=== PATIENT | male | born 1950 | race Caucasian/White ===

== ENCOUNTER 2017-09-16 12:18 | Outpatient (CLI) | payer MEDICARE ==
[2017-09-16 13:15] LABS: #Eosinphils 0.6 thou/uL (0.0-0.7); #Lymphocytes 1.7 thou/uL (1.20-3.40); #Monocytes 0.8 thou/uL (0.11-0.59); #Neutrophils 4.5 thou/uL (1.40-6.50); %Basophils 0.5 % (0.0-1.0); %Eosinophils 8.2 % (0.0-10.0); %Lymphocytes 22.8 % (21.0-51.0); %Neutrophils 58.5 % (42.0-75.0); Hemoglobin 15.4 g/dL (14.0-18.0); Mean Corpuscular HGB CONC 33.8 g/dL (32.0-36.0); Mean Corpuscular Hemoglobin 32.1 pg (27.0-31.0); Mean Platelet Volume 9.1 fL (7.4-10.4); Platelet Count 114 thou/uL (130-400); RBC Distribution Width 13.4 % (11.5-14.5); Red Blood Cell (RBC) Count 4.78 mill/uL (4.70-6.10); White Blood Cell (WBC) Count 7.6 thou/uL (4.8-10.8)
--- NOTE | 2017-09-16 13:23 | RAD ---
TWO VIEW CHEST: Comparison: 04-13-12 Indication: Pre-operative evaluation. FINDINGS: Cardiac silhouette is upper limits of normal in size. There is a valvular prostheses overlying the le ft aspect of the cardiac silhouette. No consolidation, effusion, or discrete pneumothorax. Osseous de generative change is present. IMPRESSION: No focal consolidation. POS: [facility]
[2017-09-16 13:32] LABS: Anion Gap 10 mmol/L (10-20); BUN (Urea Nitrogen) 16 mg/dL (8.4-25.7); Calc. Creatinine Clearance 0 mL/min (70-130); Calcium 9.3 mg/dL (7.8-10.44); Carbon Dioxide 29 mmol/L (23-31); Chloride 106 mmol/L (98-107); Estimated GFR-MDRD 49; Glucose 139 mg/dL (80-115); Potassium 3.9 mmol/L (3.5-5.1); Sodium 141 mmol/L (136-145)
--- NOTE | 2017-09-16 15:52 | EKG ---
Test Reason : Blood Pressure : / mmHG Vent. Rate : 064 BPM Atrial Rate : 064 BPM P-R Int : 176 ms QRS Dur : 054 ms QT Int : 328 ms P-R-T Axes : -10 147 028 degrees QTc Int : 338 ms Normal sinus rhythm Right bundle branch block Anterolateral infarct , age undetermined Inferior infarct , age undetermined Left axis deviation Abnormal ECG Confirmed by LELE ALLISON ([id number]) on 09/16/2017 3:51:48 PM Referred By: LEONARDA Confirmed By:LELE ALLISON
== END 2017-09-16 12:19 | disposition home or self-care (01) ==
LOC: LABBT 12:18
PROVIDERS: ATTEND Specialist
DX: Z01.818 Encounter for other preprocedural examination (principal); K42.9 Umbilical hernia without obstruction or gangrene
CPT/HCPCS: 71046; 80048; 85025; 93005; 93010

== ENCOUNTER 2017-09-22 05:50 | Day surgery (SDC) | payer MEDICARE ==
[2017-09-16 13:00] VITALS: BMI 47.5
[2017-09-22] MEDS ORDERED: Bupivacaine HCl 0.5%/Epinephrine 1:200,000/PF 30 ml Vial ONE (06:28)
[2017-09-22] MEDS ORDERED: Ketorolac Tromethamine 30 MG/ML VIAL ONE (06:30)
[2017-09-22] MEDS ORDERED: Midazolam HCl 2 mg/2 ml Vial ONE (06:30)
[2017-09-22] MEDS ORDERED: Fentanyl 100 MCG/2 ML VIAL ONE (06:30)
[2017-09-22] MEDS ORDERED: CEFAZOLIN/Water 2 GM/20 ML SYRINGE ONE (06:31)
--- NOTE | 2017-09-22 13:25 | OP ---
DATE OF PROCEDURE: 09/22/2017 PREOPERATIVE DIAGNOSIS: Umbilical hernia. POSTOPERATIVE DIAGNOSIS: Umbilical hernia. OPERATION PERFORMED: Umbilical hernia repair with mesh patch. SURGEON: Marcus Shah M.D. ANESTHESIA: General endotracheal. INDICATIONS: The patient is a 67-year-old morbidly obese white male. He presents with an obviously protruding umbilical hernia. He is taken to the operating room at this time for repair. DESCRIPTION OF OPERATION: Informed consent was obtained. The patient was taken to the operating hieu m where general endotracheal anesthesia was obtained with the patient in supine position. Abdomen wa s prepped with ChloraPrep and draped in sterile fashion. Local anesthetic was infiltrated using 0.5% Marcaine with epinephrine. Curvilinear infraumbilical incision was created and dissection was larissa ed through skin and subcutaneous tissue down to the fascia. The umbilicus was dissected off the unde rlying hernia sac and fascia and reflected superiorly. The hernia sac contained fatty contents. Thi s was dissected at the level of the fascia to be able to reduce the hernia contents to the preperiton eal space. I thereafter digitally dissected the preperitoneal space circumferentially. A 6.6 cm Par ietex composite ventral mesh patch was obtained and placed within the preperitoneal space. The tails were withdrawn through the incision. The defect was then closed using 3 interrupted sutures of 0 Pr olene. The lateral sutures incorporated bites of the mesh tails at the corner. The umbilicus was th en secured down to the fascia with 2 interrupted sutures of 3-0 Vicryl. The remainder of the wound w as closed in layers with 3-0 and 4-0 Monocryl. Additional local anesthetic was infiltrated during cl osure. Dermabond was placed externally. A compression dressing was effected of cotton balls and Teg aderm dressing in the usual fashion. There were no complications. Blood loss was negligible. The p atient tolerated the procedure well and was taken to recovery room in stable condition.
[2017-09-22] MEDS ORDERED: Lidocaine 1% PF 5 ML VIAL ONE (15:45)
[2017-09-22] MEDS ORDERED: Succinylcholine Chloride 20 MG/ML 10 ml SYRINGE FS ONE (15:45)
[2017-09-22] MEDS ORDERED: Metoclopramide HCl 10 MG/2 ML VIAL ONE (15:45)
[2017-09-22] MEDS ORDERED: PROPOFOL 200 MG/20 ML VIAL ONE (15:45)
[2017-09-22] MEDS ORDERED: ePHEDrine/0.9% NaCl/PF SYRINGE 50 mg/10 ml ONE (15:45)
[2017-09-22] MEDS ORDERED: Ondansetron HCl/PF 4 MG/2 ML Vial ONE (15:45)
[2017-09-22] MEDS ORDERED: Dexamethasone 20 MG/5 ML VIAL ONE (15:45)
[2017-09-22] MEDS ORDERED: diphenhydrAMINE 50 MG/ML VIAL ONE (15:45)
== END 2017-09-22 10:15 | disposition home or self-care (01) ==
LOC: SDC 05:50
PROVIDERS: ATTEND Specialist
PROC: 0WUF0JZ Supplement Abdominal Wall with Synthetic Substitute, Open Approach (ICD-10-PCS; principal; 2017-09-22)
DX: K42.9 Umbilical hernia without obstruction or gangrene (principal); E11.9 Type 2 diabetes mellitus without complications; I10 Essential (primary) hypertension; E66.01 Morbid (severe) obesity due to excess calories; Z68.42 Body mass index [BMI] 45.0-49.9, adult; Z79.84 Long term (current) use of oral hypoglycemic drugs; Z79.899 Other long term (current) drug therapy; Z98.890 Other specified postprocedural states; Z87.891 Personal history of nicotine dependence
CPT/HCPCS: J0131; J0670; J1100; J1200; J1885; J2001; J2250; J2405; J2704; J2765; J3010

== ENCOUNTER 2018-11-16 16:04 | Observation (INO) | payer MEDICARE ==
[~2018-11-16 16:04] MED LIST: ISOVUE-370 76%-LOCM 1 ML ONE
[2018-11-16 16:53] LABS: #Eosinphils 0.6 thou/uL (0.0-0.7); #Lymphocytes 2.3 thou/uL (1.20-3.40); #Monocytes 0.7 thou/uL (0.11-0.59); #Neutrophils 4.5 thou/uL (1.40-6.50); %Basophils 0.6 % (0.0-1.0); %Lymphocytes 28.2 % (21.0-51.0); %Monocytes 8.6 % (0.0-10.0); %Neutrophils 55.6 % (42.0-75.0); Mean Corpuscular HGB CONC 33.2 g/dL (32.0-36.0); Mean Corpuscular Volume 93.5 fL (78.0-98.0); Mean Platelet Volume 10.5 fL (7.4-10.4); Platelet Count 103 thou/uL (130-400); RBC Distribution Width 13.7 % (11.5-14.5); Red Blood Cell (RBC) Count 5.14 mill/uL (4.70-6.10); White Blood Cell (WBC) Count 8.2 thou/uL (4.8-10.8)
--- NOTE | 2018-11-16 17:02 | RAD ---
EXAM: CHEST ONE VIEW HISTORY: Atrial fibrillation with RVR. Chest pain. COMPARISON: 09/16/2017 FINDINGS: Metallic device again overlies the region of the left atrial appendage which could potentially repres ent an atrial occlusion type device. The cardiac silhouette is magnified by projection. Pulmonary vasculature is within normal limits. The lungs are clear. Chest is stable from prior exam. IMPRESSION: No acute cardiopulmonary process.
[2018-11-16 17:19] LABS: ALT (SGPT) 20 U/L (8-55); AST (SGOT) 23 U/L (5-34); Alkaline Phosphatase 51 U/L (40-150); Anion Gap 15 mmol/L (10-20); BUN (Urea Nitrogen) 24 mg/dL (8.4-25.7); Bilirubin, Total 1.1 mg/dL (0.2-1.2); CK (CPK) 54 U/L (30-200); Calc. Creatinine Clearance 0 mL/min (70-130); Calcium 9.9 mg/dL (7.8-10.44); Carbon Dioxide 28 mmol/L (23-31); Chloride 104 mmol/L (98-107); Estimated GFR-MDRD 41; Globulin 2.7 g/dL (2.4-3.5); Glucose 114 mg/dL (80-115); Lipase 68 U/L (8-78); Potassium 4.3 mmol/L (3.5-5.1); Protein, Total 6.7 g/dL (5.8-8.1); Sodium 143 mmol/L (136-145)
[2018-11-16] MEDS ORDERED: Metoprolol Tartrate 5 MG/5 ML VIAL ONE (18:01)
--- NOTE | 2018-11-16 19:04 | CT ---
CTA OF THE THORAX UTILIZING IV CONTRAST, PE PROTOCAL AND 3D REFORMATTED IMAGING 11/16/18 COMPARISON: Prior exam dated 11/09/13. FINDINGS: Since the comparison examination, there has been interval placement of an occlusive device within th e left atrial appendage. No definite central or segmental pulmonary embolus is evident. Again seen a re prominent lymph nodes within the mediastinum or hilar regions. One of the largest lymph nodes with in prevascular space is enlarged measuring 1.6 mm where it previously measured 9 mm. There is a righ t paratracheal lymph node measuring 1.4 cm where it previously measured 1.3 cm. There is a right supr ahilar lymph node measuring 1.5 cm where previously it measured 1.3 cm. There are areas of subsegmental volume loss involving both lungs. No confluent air space opacity or p leural effusion is noted. The visualized upper abdomen demonstrate mildly prominent paraesophageal lymph nodes. There is a gall stone within the gallbladder. No acute osseous abnormality is evident. There is scattered degenerative and osteoarthritic change. IMPRESSION: 1. No central or segmental pulmonary embolus. 2. Enlarging mediastinal and hilar lymph nodes. This is nonspecific and is slowly enlarging sinc e 2013. This may reflect an underlying inflammatory process such as sarcoidosis. Atypical infectious process such as fungal exposure could also produce a similar finding. Inhalational disorders can also produce a similar finding. 3. Interval placement of a closure device within the atrial appendage. POS: [facility]
[2018-11-16] MEDS ORDERED: Senokot S 8.6-50 MG TAB PO PRN (19:48)
[2018-11-16] MEDS ORDERED: Acetaminophen 650 MG Suppository PR PRN (19:48)
[2018-11-16] MEDS ORDERED: Ondansetron ODT 4 MG TAB PO PRN (19:48)
[2018-11-16] MEDS ORDERED: Acetaminophen 325 MG TAB PO PRN (19:48)
[2018-11-16] MEDS ORDERED: HumaLOG 300 UNITS/3 ML VIAL SC PRN ×2 (19:51)
[2018-11-16] MEDS ORDERED: Dextrose 50% Abboject 50 ML SYRINGE SLOW IVP PRN (19:51)
[2018-11-16] MEDS ORDERED: Dextrose 5% in Water 1,000 ML IV PRN (19:51)
[2018-11-16] MEDS ORDERED: Enoxaparin Sodium 100 MG/ML SYRINGE ONE (19:55)
[2018-11-16] MEDS ORDERED: Enoxaparin Sodium 40 MG/0.4 ML SYRINGE ONE (20:00)
[2018-11-16] MEDS ORDERED: Enoxaparin Sodium 60 MG/0.6 ML SYRINGE ONE (20:02)
[2018-11-16 20:09] LABS: Troponin I Less than 0.010 ng/mL (< 0.028)
[2018-11-16 20:29] VITALS: BMI 46.2
[2018-11-16] MEDS: Famotidine 20 MG TAB PO SCH (20:34)
[2018-11-16] MEDS ORDERED: Sodium Chloride 0.9% 1,000 ML IV SCH (21:04)
[2018-11-16] MEDS ORDERED: Ondansetron PF 4 MG/2 ML Vial IVP PRN (21:04)
[2018-11-16] MEDS ORDERED: Aspirin 325 MG TAB PO SCH (21:15)
--- NOTE | 2018-11-16 23:10 | HP ---
CHIEF COMPLAINT: Elevated heart rate. HISTORY OF PRESENT ILLNESS: Mr. Quevedo is a 68-year-old man, who presented for a followup with Dr. Dawn earlier today and noted to have an elevated heart rate in the 120s, believed to be in come to the emergency department. The patient had an EKG done upon arrival and was noted to be in sinus tachycardia with a heart rate of 123. Also noted on the EKG was a complete right bundle-branch block with normal ST segments. EKG has been reviewed by Dr. Dawn, who feels the patient is actually in atrial flutter. Plans at this point are for the patient to undergo a transesophageal echo followed by cardioversion tomorrow. The patient does have a history of atrial fibrillation with previous ablation. At this present time, the patient continues to be asymptomatic. He states he has not experienced any episodes of chest pain, palpitations, or shortness of breath. Has not had any nausea or vomiting. He has been in his usual state of health, but did report to Dr. Dawn noting a rapid heart rate on his Fitbit. In the ED, the patient has been started on Lovenox and has been given 5 mg of metoprolol. Heart rate improved to 103. REVIEW OF SYSTEMS: The patient denies having any recent fevers, chills, or sweats. No headaches or dizziness. No chest pain or palpitations. Has not had any nausea or vomiting. No indigestion. No abdominal pain or cramping. He has been eating and drinking as normal without any vomiting. No bowel changes. No urinary symptoms. All other review of systems are negative. ALLERGIES: NO KNOWN DRUG ALLERGIES. CURRENT MEDICATIONS: 1. Allopurinol. 2. Aspirin. 3. Carvedilol. 4. Coreg. 5. Furosemide. 6. Losartan. 7. Lyrica. 8. Metformin. 9. DiaBeta. 10. Pravachol. 11. Meloxicam. 12. Minocycline. 13. Cyproheptadine. 14. Fiber. 15. Flomax. 16. Trulicity. 17. Latanoprost. 18. Tresiba. PAST MEDICAL HISTORY: 1. History of atrial fibrillation, status post ablation in the past. 2. CHF. 3. Type 2 diabetes. 4. Hyperlipidemia. 5. Hypertension. PAST SURGICAL HISTORY: 1. Cardiac ablation x2. 2. Hernia repair. SOCIAL HISTORY: The patient lives at home and is fully independent. Reports drinking 5 to 6 cans of beer a day. Denies any history of alcohol withdrawal or tremors. No previous alcohol withdrawal seizures. He reports smoking previously. Denies any illicit drug use. PHYSICAL EXAMINATION: GENERAL: The patient appears obese, well-developed man, in no acute distress. VITAL SIGNS: Temperature 97.9, pulse 110, respirations 18, O2 saturation 96% on room air, blood pressure 123/93. HEENT: Normocephalic, atraumatic. Pupils are equal, round, and reactive to light. Sclerae are without icterus. Oropharynx is clear. NECK: Supple. No lymphadenopathy. LUNGS: Clear to auscultation bilaterally without wheezes, rales, or rhonchi. CARDIAC: Regular rhythm without audible murmurs, rubs, or gallops. ABDOMEN: Soft, obese, nondistended. Normoactive bowel sounds present. No renal angle tenderness. No guarding or rigidity. EXTREMITIES: No edema. NEUROLOGIC: Alert and oriented x3. SKIN: Without rash or jaundice. LABORATORY DATA: Full blood count unremarkable. D-dimer 0.63. Sodium 143, potassium 4.3, anion gap 15, carbon dioxide 28, BUN 24, creatinine 1.68, GFR 41, glucose 114, calcium 9.9, total bilirubin 1.1, AST 23, ALT 20, alkaline phosphatase 51. CK 54, troponin negative. BNP 173.9. Total protein 6.7, albumin 4.0, lipase 68. IMAGING DATA: 1. Chest x-ray, no acute cardiopulmonary process. Metallic device overlies region of the left atrial appendage. Pulmonary vasculature within normal limits. 2. CT angiogram of the chest, no evidence of pulmonary embolism. Enlarging mediastinal and hilar lymph nodes present, felt to be nonspecific, slowly enlarging compared to studies done in 2014. Per report, could possibly reflect underlying inflammatory process such as sarcoidosis. Atypical infectious process such as fungal exposure also a possibility. As would be inhalation disorders. Interval placement of a closure device within the atrial appendage noted. IMPRESSION AND PLAN: Mr. Quevedo is a 68-year-old man, who is being admitted for management of the following. 1. Atrial flutter. The patient is seen by Dr. Dawn, who has advised transesophageal echo followed by cardioversion tomorrow morning. The patient is to remain n.p.o. at midnight. Will be admitted to Tele. 2. Hypertension. Continue to monitor blood pressure. We will reconcile medications once verified. 3. Type 2 diabetes mellitus. Insulin sliding scale initiated. Monitor glucose. We will reconcile home medications once verified. 4. Hyperlipidemia. We will resume home medications once verified. 5. Gastrointestinal prophylaxis. 6. Deep venous thrombosis prophylaxis. The patient has been started on Lovenox. We will place mechanical SCDs. 7. Full code status. The patient states his surrogate decision makers would be his , Faiza Quevedo, and his brother. The patient's case was discussed with , who agrees with plan of care as described above. Job ID: [id number]
[2018-11-16 23:28] LABS: Troponin I 0.014 ng/mL (< 0.028)
--- NOTE | 2018-11-17 02:20 | CON ---
DATE OF CONSULTATION: 11/16/2018 REASON FOR CONSULTATION: Tachycardia. HISTORY OF PRESENT ILLNESS: Mr. Quevedo is a very pleasant 68-year-old gentleman with a long history of atrial arrhythmias. In 2011, he presented with a transient ischemic attack. At that time, he was diagnosed with atrial fibrillation. He later was also found to have atrial flutter. He had atrial flutter ablation done here in 2012. Subsequently had more problems with atrial fibrillation and eventually underwent atrial fibrillation ablation, I believe that was done in [place]. The patient later had left atrial occlusion device placed (Amulet). He was later taken off Eliquis after it was found to be adequately occluded. The patient states he has been doing fairly well up until recently, then began having more shortness of breath and some swelling of his lower extremities. He came to our office, where EKG initially thought to be atrial fibrillation, but appears it is atrial flutter in the mid 120s. MEDICATIONS: At home, he is taking carvedilol twice a day, but he is unsure of the medicine, and also aspirin. REVIEW OF SYSTEMS: CONSTITUTIONAL: No significant weight gain or loss. VISION: No changes. HEARING: No changes. PULMONARY: No cough or wheezing. GASTROINTESTINAL: No nausea, vomiting, or diarrhea. SKIN: No rashes. PHYSICAL EXAMINATION: GENERAL: This is a pleasant gentleman. He is relatively tall. VITAL SIGNS: The weight is not currently recorded. He generally weighs well over 300 pounds. Heart rate is variable between 100 to 125, looks like it is atrial flutter with variable conduction. LUNGS: Clear. CARDIAC: Tachycardic. ABDOMEN: Obese and nontender. EXTREMITIES: No clubbing or cyanosis. There is moderate edema. LABORATORY DATA AND DIAGNOSTIC STUDIES: The patient had a CT pulmonary angiogram done here, concerned for pulmonary embolism, but that was negative. The patient 's creatinine is 1.68. The patient's EKG reveals tachycardia with right bundle branch block pattern. He is in atrial flutter ASSESSMENT AND PLAN: 1. Recurrent atrial arrhythmias, atrial flutter. 2. Obesity. 3. Previous atrial fibrillation and atrial flutter ablations. PLAN: 1. Transesophageal echo and cardioversion tomorrow. 2. Consult electrophysiology tomorrow. Job ID: [id number] [facility]
[2018-11-17 05:25] LABS: #Basophils 0.1 thou/uL (0.0-0.2); #Eosinphils 0.5 thou/uL (0.0-0.7); #Lymphocytes 2.3 thou/uL (1.20-3.40); #Monocytes 0.6 thou/uL (0.11-0.59); #Neutrophils 3.6 thou/uL (1.40-6.50); %Basophils 0.7 % (0.0-1.0); %Eosinophils 7.2 % (0.0-10.0); %Lymphocytes 32.2 % (21.0-51.0); %Monocytes 9.1 % (0.0-10.0); %Neutrophils 50.8 % (42.0-75.0); Hemoglobin 14.8 g/dL (14.0-18.0); Mean Corpuscular HGB CONC 33.4 g/dL (32.0-36.0); Mean Corpuscular Hemoglobin 31.4 pg (27.0-31.0); Mean Platelet Volume 10.4 fL (7.4-10.4); Platelet Count 98 thou/uL (130-400); RBC Distribution Width 13.6 % (11.5-14.5); White Blood Cell (WBC) Count 7.1 thou/uL (4.8-10.8)
[2018-11-17 05:52] LABS: Anion Gap 14 mmol/L (10-20); BUN (Urea Nitrogen) 25 mg/dL (8.4-25.7); Calc. Creatinine Clearance 103 mL/min (70-130); Calcium 9.4 mg/dL (7.8-10.44); Carbon Dioxide 24 mmol/L (23-31); Chloride 108 mmol/L (98-107); Estimated GFR-MDRD 44; Glucose 191 mg/dL (80-115); Potassium 3.6 mmol/L (3.5-5.1); Sodium 142 mmol/L (136-145)
[2018-11-17] MEDS: Famotidine 20 MG TAB PO SCH (08:06)
[2018-11-17] MEDS ORDERED: Flecainide 50 MG TAB PO SCH (09:00)
[2018-11-17] MEDS ORDERED: PROPOFOL 40 ML ONE (09:37)
[2018-11-17] MEDS ORDERED: Apixaban 5 MG TAB PO SCH ×3 (11:09→21:00)
[2018-11-17 12:04] VITALS: TEMP 97.4
--- NOTE | 2018-11-17 12:21 | CON ---
DATE OF CONSULTATION: 11/16/2018 HISTORY OF PRESENT ILLNESS: I am seeing Mr. Quevedo at our [facility] ([place], [place]) telemetry floor as an electrophysiology documentum consultant and his problems are : 1. Recurrent atrial arrhythmias. a. History of persistent atrial fibrillation prompting pulmonary venous isolation in 2013 and redo ablation in June 2016 including isolation of the left atrial appendage. b. Current admission with atypical atrial flutter with rapid rates. 2. SOFI-VASc score of 3 with hypertension, diabetes, age, status post Amulett KYLE occlusion device implant in 2017 and subsequent satisfactory SHARYN per patient. 3. Chronic right bundle branch block. 4. History of significant valvular heart disease, mild MR, mild TR. Left atrial enlargement on SHARYN from 11/10/2013. No prior history of heart disease or heart attacks. 5. Morbid obesity. ALLERGIES: NONE NOTED. MEDICATIONS: At home includes: 1. DiaBeta. 2. Losartan. 3. Lyrica. 4. Metformin. 5. Aspirin. 6. Pravachol. 7. Meloxicam. 8. Minocycline. 9. Cyproheptadine. 10. Allopurinol. 11. Cyanocobalamin. 12. Coreg. 13. Flomax. 14. Furosemide. 15. Carvedilol. 16. Trulicity. 17. Latanoprost. SUBJECTIVE: Mr. Quevedo has been experiencing some increased palpitations recently. He has been noticing elevated heart rate on his new Fitbit heart rate monitors. Denies chest pains, dizziness, or loss of consciousness associated with this. He visits Dr. Dawn's office and he was noted to be in regular rhythm. EKG suggestive of atrial flutter with 2:1 AV conduction. He was admitted for further care. SHARYN guided cardioversion is planned. Currently, he has no PND, orthopnea, or lower extremity edema. Denies angina. No dizziness or loss of consciousness. No bleeding issues. No stroke-like symptoms in the past. He had severe bruising with anticoagulants. REVIEW OF SYSTEMS: Rest of 12-point system otherwise unremarkable. OBJECTIVE: VITAL SIGNS: Blood pressure is 107/63, heart rate 118, respirations 16, temperature 97.9 degrees Fahrenheit. GENERAL: Alert and oriented man, in no apparent distress with elevated BMI. His weight is 344 pounds. NECK: Supple. Jugular veins difficult to visualize due to obesity. CHEST: Coarse without crackles. HEART: Sounds are regular and tachycardic. No murmur or gallop. ABDOMEN: Benign. Bowel sounds positive. EXTREMITIES: Lower extremity without edema, clubbing or cyanosis. Pulses are adequate. NEUROLOGIC: The patient is nonfocal. MUSCULOSKELETAL: No joint swelling or deformity. SKIN: Without rash. DATABASE: EKGs reviewed revealing rapid tachycardia with a right bundle branch block pattern. Telemetry reveals occasional slowing revealing underlying atrial flutter. The ventricular rates on initial EKG is 123 beats per minute. LABORATORY DATA: White cell count 7.1, hemoglobin 14, hematocrit 44, platelet count is 98. Sodium 142, potassium 3.6, BUN is 25, and creatinine 1.57. D-dimer is 0.63. ASSESSMENT AND PLAN: Mr. Quevedo is a 68-year-old man with prior history of repeated left atrial ablation procedures, now presenting with atypical atrial flutter with rapid rates. He does have a history of appendage occlusion and left atrial appendage isolation as well. Currently, not on anticoagulant. His workup so far is significant for mild thrombocytopenia in the 90,000 range and moderate renal insufficiency. We discussed treatment options. I agree with the plan of cardioversion. SHARYN might be helpful to assess his LV systolic function, as well as the closure of left atrial appendage with the device. We discussed the benefit of cardioversion. He may benefit also from transient suppression of his arrhythmias with flecainide. We discussed the longer-term option of outpatient redo ablation. We will make arrangements for this to be done in the near future. Risk and benefit of the ablation procedure were discussed. He understands and is willing to proceed. We will schedule him for a near date. Thank you again for allowing me to participate in the care of this patient. Job ID: [id number] [facility]
[2018-11-17] MEDS ORDERED: Carvedilol 25 MG TAB PO SCH ×2 (12:45→17:00)
--- NOTE | 2018-11-17 13:36 | PRG ---
DATE OF SERVICE: 11/17/2018 Mr. Quevedo underwent cardioversion today. He was found to have a very long first-degree AV block of 0.28. He also has a bifascicular block. His underlying rhythm before the cardioversion was atrial flutter. The patient will go home on the same medicines he came in on includin. Carvedilol 25 mg a day. 2. Losartan same dose. 3. Apixaban 5 mg tablet twice a day will be resumed for at least a month. Stop aspirin. There was initially some consideration for flecainide, but he has some degree of left ventricular dysfunction. He also has the abnormal conduction system disease as outlined above. Dr. Trujillo will bring him back in for atrial flutter ablation. The patient understands that he could recur at any time with atrial flutter. If he has prolonged heart rates of 120s, he is to be readmitted. Would need to re-cardiovert him. Would not need to do another SHARYN in view of the recent SHARYN findings and being on apixaban, but I do not think he can tolerate long-term tachycardia with some degree of left ventricular dysfunction. So, he is to come in next week for an echocardiogram. The patient does not wish to stay in the hospital any longer today. Job ID: [id number]
[2018-11-17 14:18] VITALS: BP 130/80
--- NOTE | 2018-11-17 15:41 | ECHO ---
This is a 68-year-old gentleman with typical atrial flutter. The patient was taken to the PACU. The patient sedated by anesthesiology. A transesophageal probe was placed in the distal esophagus and stomach. Echocardiograms were obtained and the transesophageal pr obe was removed. FINDINGS: 1. Decreased left ventricular systolic function. 2. Biatrial enlargement. 3. Mild mitral regurgitation. 4. Mild tricuspid regurgitation. 5. The occluder device is noted in the left atrial appendage. There was a less than 1 mm leak no gunjan around the device. 6. Atherosclerotic debris in the descending aorta. IMPRESSION: Small, less than 1 mm leak noted around the occluder device.
[2018-11-17] MEDS ORDERED: PROPOFOL 200 MG/20 ML VIAL ONE (15:49)
--- NOTE | 2018-11-17 15:54 | OP ---
DATE OF PROCEDURE: 11/17/18 SURGEON: Kevin Dawn M.D. PROCEDURE: Cardioversion. The patient is brought to the Post Cath area in a fasting state. Transesophageal echo revealed a tiny communication between the left atrial appendage and left atrium. It was well under 1 mm. It looked l asad a very trivial amount of flow that Dr. Whitman said was very difficult to find but he ultimately found this. Patient did have some left ventricular dysfunction likely related to the tachycardia. The decision wa s made to go ahead and cardiovert. Also leaving him like this would not be a good option. This is lik luciana going to result in further left ventricular dysfunction. He was given 50 joules direct current en ergy and converted to sinus rhythm with first degree block. Patient underwent successful cardioversio n. Tiny amount of flow through the amulut. As a precaution, we will go ahead and anticoagulate for 30 da ys with Eliquis.
--- NOTE | 2018-11-18 05:06 | DIS ---
DATE OF ADMISSION: 11/16/2018 DATE OF DISCHARGE: 11/17/2018 CONDITION AT THE TIME OF DISCHARGE: Stable and improved. DISCHARGE DISPOSITION: Home. DISCHARGE DIAGNOSIS: Atrial flutter. The patient underwent SHARYN with successful cardioversion by Dr. Dawn. SECONDARY DISCHARGE DIAGNOSES: 1. status post ablation in the past. 2. History of chronic congestive heart failure. 3. Type 2 diabetes mellitus. 4. Hypertension. 5. Dyslipidemia. DISCHARGE MEDICATIONS: Stopped medication; aspirin daily. New medication, Eliquis 5 mg p.o. b.i.d. Resume home medications. Please see admission history and physical dictated by MADISON Pérez on 11/16/2018. No changes were made. Coreg is at 25 mg p.o. b.i.d. and losartan is at 25 mg at bedtime. Resume rest of the home medications as per HPI, including 1. Pravachol 40 mg daily. 2. Lyrica 100 mg p.o. b.i.d. 3. Tamsulosin 0.4 mg daily. 4. Tresiba at home dosages. 5. Glyburide 5 mg p.o. b.i.d. 6. Neurontin 300 mg p.o. b.i.d. 7. Lasix 40 mg p.o. b.i.d. 8. Trulicity subcu as home dose. 9. Cyproheptadine 4 mg p.o. b.i.d. IN-HOUSE CONSULTATION: 1. Cardiology, Dr. Dawn. 2. Electrophysiology, Dr. Trujillo. PROCEDURES DONE IN THE HOSPITAL: CT angio of the thorax which is negative for any pulmonary embolism. It shows some atypical mediastinal hilar lymph nodes. An atrial appendage is also seen. HISTORY OF PRESENTING ILLNESS: Mr. Quevedo is a 68-year-old male with past medical history of atrial fibrillation status post ablation in the past at least twice as well as left atrial occlusive device, who presented to the emergency room with complaints of faster heart rate found in Dr. Dawn's office. He was found to be in sinus tachycardia with a heart rate of 123 and right bundle-branch block. EKG was reviewed by Dr. Dawn, who felt that the patient was in atrial flutter. He was admitted to Medicine for further evaluation and was given a therapeutic dose of Lovenox as well as IV metoprolol. Please see admission history and physical dictated by for further detail including [id number] interaction. A CT angio of the chest was done in the emergency room because of elevated D-dimer, which was negative for any PE. HOSPITAL COURSE: The patient remained hemodynamically stable and underwent a SHARYN with successful cardioversion earlier this morning by Dr. Dawn. He was started on Eliquis and then his aspirin was stopped. The patient was eager to go home and refused to let me examine him. He did not want me to take care of him. He wanted Dr. Dawn to discharge him, so Dr. Dawn was contacted. He cleared the patient for discharge, so he was discharged. I have encouraged him to follow up with primary care physician at the very least, as well as Cardiology in the outpatient setting. Dr. Trujillo also saw the patient in the hospital and he considered flecainide but at this time, he was not started on it. Dr. Trujillo will also see him in the outpatient setting. His physical examination was limited because of noncooperation. His vital signs prior to discharge, blood pressure 138/80, pulse of 89, respirations 18, saturating 97% on room air. PRIMARY CARE PHYSICIAN: Edson Arshad DO Job ID: [id number]
--- NOTE | 2018-11-19 07:13 | EKG ---
Test Reason : POST CARDIOVERSION Blood Pressure : / mmHG Vent. Rate : 083 BPM Atrial Rate : 083 BPM P-R Int : 278 ms QRS Dur : 160 ms QT Int : 418 ms P-R-T Axes : 038 -74 -02 degrees QTc Int : 491 ms Sinus rhythm with 1st degree A-V block Left axis deviation Right bundle branch block Possible Lateral infarct (cited on or before 16-SEP-2017) Inferior infarct (cited on or before 30-NOV-2013) Abnormal ECG When compared with ECG of 16-NOV-2018 16:18, (Unconfirmed) OR interval has increased Confirmed by J LUIS MCLAUGHLIN ([id number]) on 11/19/2018 7:12:35 AM Referred By: TOMEKA Confirmed By:J LUIS MCLAUGHLIN
== END 2018-11-17 14:43 | disposition home or self-care (01) ==
LOC: ERS 16:04 → 2SW 20:24
PROVIDERS: ADMIT Internal Medicine; ATTEND Internal Medicine
PROC: B24BZZ4 Ultrasonography of Heart with Aorta, Transesophageal (ICD-10-PCS; principal; 2018-11-17)
PROC: 5A2204Z Restoration of Cardiac Rhythm, Single (ICD-10-PCS; 2018-11-17)
DX: I48.3 Typical atrial flutter (principal); I70.0 Atherosclerosis of aorta; I08.1 Rheumatic disorders of both mitral and tricuspid valves; I48.1 Persistent atrial fibrillation; I45.10 Unspecified right bundle-branch block; I11.0 Hypertensive heart disease with heart failure; I50.9 Heart failure, unspecified; E11.9 Type 2 diabetes mellitus without complications; E78.5 Hyperlipidemia, unspecified; E66.01 Morbid (severe) obesity due to excess calories; Z79.01 Long term (current) use of anticoagulants; Z87.891 Personal history of nicotine dependence; Z95.818 Presence of other cardiac implants and grafts; Z98.890 Other specified postprocedural states; Z79.82 Long term (current) use of aspirin; Z79.84 Long term (current) use of oral hypoglycemic drugs; Z79.899 Other long term (current) drug therapy; Z86.73 Personal history of transient ischemic attack (TIA), and cerebral infarction without residual deficits; Z68.42 Body mass index [BMI] 45.0-49.9, adult
CPT/HCPCS: 71045; 71275; 80048; 80053; 82550; 82962 ×2; 83690; 83880; 84484 ×2; 85025 ×2; 85379; 92960; 93005 ×2; 93312; 96361 ×2; 96365; 96372; 96375; 99285; G0378 ×2; 36415; 36416; 93010; J1650; J2704; Q9966

== ENCOUNTER 2018-11-27 16:52 | Emergency (ER) | payer MEDICARE | END 2018-11-27 18:23 | disposition home or self-care (01) | LOC: ERS 16:52 | DX: R20.2 Paresthesia of skin (principal); E11.9 Type 2 diabetes mellitus without complications; E78.5 Hyperlipidemia, unspecified; I11.0 Hypertensive heart disease with heart failure; I50.9 Heart failure, unspecified; I48.91 Unspecified atrial fibrillation | CPT/HCPCS: 99283 ==

== ENCOUNTER 2018-12-07 08:12 | Observation (INO) | payer MEDICARE ==
[2018-12-06 12:57] VITALS: BMI 45.5
[2018-12-07 09:18] LABS: INR-International Normal Ratio 1.4; Prothrombin Time 17.2 SEC (12.0-14.7)
[2018-12-07 09:23] LABS: #Basophils 0.1 thou/uL (0.0-0.2); #Eosinphils 0.7 thou/uL (0.0-0.7); #Lymphocytes 1.5 thou/uL (1.20-3.40); #Monocytes 0.6 thou/uL (0.11-0.59); #Neutrophils 4.4 thou/uL (1.40-6.50); %Basophils 0.9 % (0.0-1.0); %Eosinophils 9.9 % (0.0-10.0); %Lymphocytes 20.3 % (21.0-51.0); %Monocytes 8.6 % (0.0-10.0); %Neutrophils 60.4 % (42.0-75.0); Hemoglobin 14.9 g/dL (14.0-18.0); Mean Corpuscular HGB CONC 33.6 g/dL (32.0-36.0); Mean Corpuscular Hemoglobin 31.3 pg (27.0-31.0); Mean Corpuscular Volume 93.3 fL (78.0-98.0); Platelet Count 106 thou/uL (130-400); RBC Distribution Width 13.2 % (11.5-14.5); Red Blood Cell (RBC) Count 4.76 mill/uL (4.70-6.10); White Blood Cell (WBC) Count 7.3 thou/uL (4.8-10.8)
[2018-12-07 09:29] LABS: Anion Gap 11 mmol/L (10-20); BUN (Urea Nitrogen) 22 mg/dL (8.4-25.7); Calc. Creatinine Clearance 109 mL/min (70-130); Calcium 9.6 mg/dL (7.8-10.44); Carbon Dioxide 30 mmol/L (23-31); Chloride 106 mmol/L (98-107); Estimated GFR-MDRD 48; Glucose 108 mg/dL (80-115); Potassium 3.8 mmol/L (3.5-5.1); Sodium 143 mmol/L (136-145)
[2018-12-07] MEDS ORDERED: Rocuronium Bromide 10 MG/ML (10ML VIAL) ONE (10:39)
[2018-12-07] MEDS ORDERED: Heparin 30,000 units/30 ml VIAL ONE (10:39)
[2018-12-07] MEDS ORDERED: Lidocaine 1% PF 5 ML VIAL ONE (10:39)
[2018-12-07] MEDS ORDERED: Glycopyrrolate 0.2 MG/ML 5 ML SYRINGE ONE (10:39)
[2018-12-07] MEDS ORDERED: PROPOFOL 200 MG/20 ML VIAL ONE (10:39)
[2018-12-07] MEDS ORDERED: PHENYLEPHRINE-NS 100 MCG/ML 10 ML SYRINGE ONE (10:39)
[2018-12-07] MEDS ORDERED: Heparin 10,000 UNITS/1 ML VIAL ONE (11:28)
[2018-12-07] MEDS ORDERED: Midazolam HCl 2 mg/2 ml Vial ONE (11:58)
[2018-12-07] MEDS ORDERED: Fentanyl 100 MCG/2 ML VIAL ONE (11:58)
[2018-12-07] MEDS ORDERED: Famotidine/PF 20 mg/2ml Vial ONE (11:58)
[2018-12-07] MEDS ORDERED: Protamine Sulfate 50 MG/5 ML VIAL ONE (13:36)
[2018-12-07] MEDS ORDERED: SUGAMMADEX SODIUM 500 MG/5 ML VIAL ONE (13:53)
[2018-12-07] MEDS ORDERED: Cyanocobalamin 1000 MCG/ML VIAL IM SCH (14:45)
[2018-12-07] MEDS ORDERED: DULAGLUTIDE (TRULICITY) SC SCH (15:00)
--- NOTE | 2018-12-07 16:54 | EKG ---
Test Reason : PREOP Blood Pressure : / mmHG Vent. Rate : 075 BPM Atrial Rate : 075 BPM P-R Int : 282 ms QRS Dur : 160 ms QT Int : 444 ms P-R-T Axes : 043 -85 011 degrees QTc Int : 495 ms Sinus rhythm with 1st degree A-V block with Premature atrial complexes with Abberant conduction Left axis deviation Right bundle branch block Possible Lateral infarct (cited on or before 16-SEP-2017) Abnormal ECG When compared with ECG of 17-NOV-2018 11:20, Abberant conduction is now Present Questionable change in initial forces of Lateral leads Confirmed by DR. Meche VIGIL ([id number]) on 12/07/2018 4:54:26 PM Referred By: LIZ Confirmed By:DR. Meche VIGIL
--- NOTE | 2018-12-07 17:05 | EKG ---
Test Reason : POST ABLATION Blood Pressure : / mmHG Vent. Rate : 087 BPM Atrial Rate : 087 BPM P-R Int : 250 ms QRS Dur : 158 ms QT Int : 428 ms P-R-T Axes : 042 -83 046 degrees QTc Int : 515 ms Sinus rhythm with 1st degree A-V block Left axis deviation Inferior SC unknown age Right bundle branch block Abnormal ECG When compared with ECG of 07-DEC-2018 09:31, (Unconfirmed) Abberant conduction is no longer Present Confirmed by DR. Meche VIGIL (3) on 12/07/2018 5:04:58 PM Referred By: TOMEKA Confirmed By:DR. Meche VIGIL
[2018-12-07] MEDS: glyBURIDE 5 MG TAB PO SCH (17:18)
[2018-12-07] MEDS: metFORMIN 500 MG TAB PO SCH (17:20)
[2018-12-07] MEDS: Pregabalin 50 MG CAP PO SCH (20:34)
[2018-12-07] MEDS: Carvedilol 25 MG TAB PO SCH (20:34)
[2018-12-07] MEDS: Allopurinol 300 MG TAB PO SCH (20:34)
[2018-12-07] MEDS: Apixaban 5 MG TAB PO SCH (20:36)
[2018-12-07] MEDS: Doxycycline 100 MG CAP PO SCH (20:36)
--- NOTE | 2018-12-07 20:46 | OP ---
DATE OF PROCEDURE: 12/07/2018 PROCEDURES PERFORMED: Comprehensive electrophysiology testing with 3-dimensional mapping and ablation of atrial fibrillation. CLINICAL INDICATION: History of atrial fibrillation and flutter. ASA CLASSIFICATION: III. ANESTHESIA: General endotracheal anesthesia per Anesthesiology. ADDITIONAL CARDIAC MEDICATIONS: Isoproterenol 10 mcg/minute infusion. TOTAL HEPARIN GIVEN: 14,000 units. TOTAL PROTAMINE GIVEN: 40 mg. TOTAL CONTRAST: 17 mL. TOTAL FLUORO TIME: 0.2 minutes for angiographic analysis of the Amulet. ACUTE COMPLICATIONS: None. METHODS: After informed consent was obtained, the patient was taken to the EP lab in a fasting state. Both groins were prepped and draped. Using ultrasound guidance, the right and left femoral veins were accessed, wires were inserted into the central venous system. Wires were used to place an 11-Guyanese and 8-Guyanese sheaths in the left groin and two 8-Guyanese sheaths in the right groin. All 8-Guyanese sheaths were replaced by long sheaths for catheter stability. An echo probe was placed in the left groin and advanced up to the right atrium and right ventricle for imaging. A circular and ablation catheter was placed in the right vein and advanced up to the right atrium. A 3D map was obtained at the right atrium and the coronary sinus. A 20-pole catheter was placed in left groin and advanced toward the coronary sinus. The patient was then anticoagulated. Transseptal catheterization was performed on 2 occasions. Ultrasound was used along with 3D mapping system for guidance. A 3D map was obtained in the left atrium. A temperature probe was placed in the esophagus next to a sensor catheter for visualization of 3D mapping system. Ablation was performed, re-isolating the posterior wall and the right superior pulmonary vein as well as the coronary sinus as it was shown to have evidence of spontaneous atrial tachycardia arising from that chamber. At the conclusion, angiography was performed interrogating the Amulet. There was small a leak on the Coumadin ridge site; however, this did not pass beyond the lobe of the Amulet. RESULTS: 1. Baseline intervals: SC interval 251 milliseconds. QRS interval 150 milliseconds. QT intervals 442 milliseconds. HV intervals 65 milliseconds. 2. Atrial function: The patient was in sinus rhythm; however, spontaneous atrial tachycardia was seen arising from the coronary sinus, which was completely isolated. 3. Ablation details. A total of 11 minutes and 3 seconds of ablation delivered to re-isolate the posterior wall, the right superior pulmonary vein, and to completely isolate the coronary sinus. 4. Amulet evaluation: Angiography was obtained with pressurized contrast injection. This showed evidence of a small para-disk Amulet leak; however, the contrast did not pass distal to the lobe, as a result, the Amulet would be considered closed. IMPRESSION: 1. Successful PV antral isolation including coronary sinus and posterior wall isolation. 2. Evidence of a closed Amulet. There is a small nonclinical para-device Amulet leak at the level of the disk, but this did not pass beyond the lobe. RECOMMENDATION: Continue with anticoagulation for 6 weeks due to left atrial ablation themselves. Job ID: [id number]
[2018-12-07] MEDS ORDERED: Tamsulosin HCl 0.4 MG CAP PO SCH (21:00)
[2018-12-07] MEDS ORDERED: Atorvastatin Calcium 10 MG TAB PO SCH (21:00)
[2018-12-08 08:47] VITALS: BP 116/65; TEMP 97.9
[2018-12-08] MEDS ORDERED: Insulin Glargine 30 UNITS in Pre-Filled Syringe SC SCH (09:00)
[2018-12-08] MEDS ORDERED: Lisinopril 5 MG TAB PO SCH (09:00)
[2018-12-08] MEDS ORDERED: Furosemide 40 MG TAB PO SCH (09:00)
[2018-12-08] MEDS ORDERED: Latanoprost 0.005% Ophth Soln 2.5 ml Bottle EA EYE SCH (09:00)
[2018-12-08] MEDS: metFORMIN 500 MG TAB PO SCH (09:20)
[2018-12-08] MEDS: Carvedilol 25 MG TAB PO SCH (09:20)
[2018-12-08] MEDS: Doxycycline 100 MG CAP PO SCH (09:20)
[2018-12-08] MEDS: glyBURIDE 5 MG TAB PO SCH (09:20)
[2018-12-08] MEDS: Allopurinol 300 MG TAB PO SCH (09:20)
[2018-12-08] MEDS: Apixaban 5 MG TAB PO SCH (09:20)
[2018-12-08] MEDS: Pregabalin 50 MG CAP PO SCH (09:21)
[2018-12-08] MEDS ORDERED: Sucralfate 1 GM TAB PO SCH (11:30)
--- NOTE | 2018-12-08 17:53 | EKG ---
Test Reason : Blood Pressure : / mmHG Vent. Rate : 074 BPM Atrial Rate : 074 BPM P-R Int : 264 ms QRS Dur : 158 ms QT Int : 438 ms P-R-T Axes : 037 -81 -10 degrees QTc Int : 486 ms Sinus rhythm with 1st degree A-V block Left axis deviation Right bundle branch block Possible Lateral infarct , age undetermined Inferior infarct , age undetermined Abnormal ECG When compared with ECG of 07-DEC-2018 14:16, T wave inversion now evident in Inferior leads Confirmed by DR. Meche VIGIL (3) on 12/08/2018 5:52:59 PM Referred By: LIZ Confirmed By:DR. Meche VIGIL
[2018-12-09] MEDS ORDERED: Furosemide 40 MG TAB PO SCH (07:30)
[2018-12-09] MEDS ORDERED: Potassium Chloride 20 MEQ TAB PO SCH (08:00)
--- NOTE | 2018-12-09 08:15 | DIS ---
DATE OF ADMISSION: 12/07/2018 DATE OF DISCHARGE: 12/08/2018 DIAGNOSES: Atrial fibrillation and atrial flutter. PROCEDURES PERFORMED: 1. Comprehensive electrophysiology testing with 3-dimensional mapping and ablation of atrial fibrillation. 2. Amulet evaluation: Angiography was obtained with pressurized contrast injection. It showed evidence of a small para-disk Amulet leak; however, the contrast did not pass distal to the lobe, as a result, the Amulet would be considered closed. TOTAL ABLATION TIME: 11 minutes and 3 seconds delivered to re-isolate the posterior wall, the right superior pulmonary vein, and to completely isolate the coronary sinus. RECOMMENDATION: Continue with anticoagulation for 6 weeks due to left atrial ablation themselves. HISTORY OF PRESENT ILLNESS: Mr. Quevedo is a 68-year-old gentleman known to our with past history of persistent atrial arrhythmias, who has undergone three extensive prior ablations. He continued to have episodes of atrial fibrillation and atypical flutter and was taken to the EP lab for elective re-evaluation with 3D map in an ablation. Procedures were performed as detailed above. SUBJECTIVE: Mr. Quevedo is feeling well today. He denies any heart racing, palpitations, chest pain, pressure syncope, near syncope, stroke, stroke-like symptoms, shortness of breath, difficulty urinating, nausea, vomiting, or diarrhea, or bleeding at the groin sites. He generally feels in good condition as he eager to discharge home. REVIEW OF SYSTEMS: An 8-point review of systems is conducted and is negative except as listed above in the subjective portion. OBJECTIVE: VITAL SIGNS: Temperature 97.9, pulse 68, blood pressure 116/65, respirations 16, and oxygen is 95% on room air. GENERAL: The patient is alert and oriented. Speech is clear. Affect is appropriate. He is in no apparent distress and resting fully recumbent bed. NECK: Supple without jugular venous distention. LUNGS: Clear to auscultation HEART: Heart rate is regularly regular with crisp S1 and S2. ABDOMEN: Obese, soft, and nontender. There are distant bowel tones heard. Hepatojugular reflux is negative. EXTREMITIES: Warm and dry to touch, without clubbing or cyanosis. Chronic edema. 1+ pitting is noted at bilateral lower extremities with hemosiderin staining. NEUROLOGIC: Grossly intact and nonfocal. Gait is stable. Bilateral groin sites are stable without bleeding or hematoma. DATABASE: Telemetry and EKGs reveal sinus rhythm with very low amplitude P-waves which is not new to him given the extensive ablations in the past and recent ablation. Rate has been very regular. DISCHARGE RECOMMENDATIONS AND INSTRUCTIONS: No soaking baths for 1 week. No driving for 2 days. No lifting more than 10 pounds for 1 week then in 1 week time he may resume activities gradually and as tolerated. He was given the TCA post discharge packet instructions. He will contact our office with any additional post-ablation questions. We will see him back in clinic in 6 weeks or sooner if symptoms dictate. DISCHARGE MEDICATIONS: Resume home medications of, 1. Tamsulosin 0.4 mg nightly. 2. Lyrica 100 mg p.o. b.i.d. 3. Metformin 1000 mg p.o. b.i.d. 4. Pravachol 40 mg nightly. 5. Zestril 1 tab p.o. daily. 6. Latanoprost eye drops daily. 7. Glyburide 5 mg p.o. b.i.d. 8. Tresiba as directed. 9. Lasix 40 mg p.o. b.i.d. but may take additional 20 to 40 mg daily as needed for additional shortness of breath or fluid retention following ablation. 10. Trulicity 1.5 mg weekly. 11. Vibramycin 100 mg p.o. b.i.d. 12. Vitamin B12 IM injection monthly. 13. Carvedilol 25 mg p.o. b.i.d. 14. Eliquis 5 mg p.o. b.i.d. 15. Allopurinol 300 mg p.o. b.i.d. New prescriptions submitted include, 1. Carafate 1 g p.o. a.c. at bedtime x2 weeks. 2. Protonix 40 mg p.o. daily x1 month. 3. Potassium chloride 20 mEq to be taken only if additional Lasix is required that day. CONDITION AT DISCHARGE: Stable. Job ID: [id number]
== END 2018-12-08 12:08 | disposition home or self-care (01) ==
LOC: CCL 08:12 → 2SW 12:55
PROVIDERS: ADMIT Internal Medicine Cardiovascular Disease; ATTEND Internal Medicine Cardiovascular Disease
PROC: 02583ZZ Destruction of Conduction Mechanism, Percutaneous Approach (ICD-10-PCS; principal; 2018-12-07)
PROC: 02K83ZZ Map Conduction Mechanism, Percutaneous Approach (ICD-10-PCS; 2018-12-07)
PROC: 4A023FZ Measurement of Cardiac Rhythm, Percutaneous Approach (ICD-10-PCS; 2018-12-07)
PROC: 4A0234Z Measurement of Cardiac Electrical Activity, Percutaneous Approach (ICD-10-PCS; 2018-12-07)
DX: I48.1 Persistent atrial fibrillation (principal); I48.4 Atypical atrial flutter; G47.30 Sleep apnea, unspecified; E78.5 Hyperlipidemia, unspecified; I10 Essential (primary) hypertension; E11.9 Type 2 diabetes mellitus without complications; I45.10 Unspecified right bundle-branch block; E66.01 Morbid (severe) obesity due to excess calories; Z68.42 Body mass index [BMI] 45.0-49.9, adult; Z87.891 Personal history of nicotine dependence; Z79.01 Long term (current) use of anticoagulants; Z79.4 Long term (current) use of insulin; Z79.899 Other long term (current) drug therapy
CPT/HCPCS: 75820; 76942; 80048; 82962; 85025; 85347 ×2; 85610; 85730; 93005 ×3; 93462; 93613; 93621; 93623; 93653; 93655; 93662; C1731; C1732 ×3; C1759; C1760; C1769; G0378; 36415; 36416; 93010; J0131; J1644; J1825; J2001; J2250; J2704; J2720; J3010; S0028

== ENCOUNTER 2019-12-02 07:17 | Outpatient (CLI) | payer MEDICARE, OTHER ==
[2019-12-02 10:25] LABS: Mean Corpuscular HGB CONC 33.2 g/dL (32.0-36.0); Mean Corpuscular Hemoglobin 30.7 pg (27.0-31.0); Mean Corpuscular Volume 92.5 fL (78.0-98.0); Platelet Count 135 thou/uL (130-400); RBC Distribution Width 13.3 % (11.5-14.5); White Blood Cell (WBC) Count 9.8 thou/uL (4.8-10.8)
[2019-12-02 11:11] LABS: Anion Gap 14 mmol/L (10-20); BUN (Urea Nitrogen) 25 mg/dL (8.4-25.7); Calc. Creatinine Clearance 0 mL/min (70-130); Calcium 9.8 mg/dL (7.8-10.44); Carbon Dioxide 28 mmol/L (23-31); Chloride 103 mmol/L (98-107); Estimated GFR-MDRD 24; Glucose 190 mg/dL (80-115); Potassium 4.2 mmol/L (3.5-5.1); Sodium 141 mmol/L (136-145)
[2019-12-02 18:20] LABS: SARS-CoV-2 MS2 Positive; SARS-CoV-2 N Gene Negative; SARS-CoV-2 S Gene Negative; SARS-CoV-2 orf1ab Negative
== END 2019-12-02 07:18 | disposition home or self-care (01) ==
LOC: LABBT 07:17
PROVIDERS: ATTEND Internal Medicine Cardiovascular Disease
DX: Z01.812 Encounter for preprocedural laboratory examination (principal); Z11.59 Encounter for screening for other viral diseases; I48.91 Unspecified atrial fibrillation
CPT/HCPCS: 80048; 85027; U0003; 87635

== ENCOUNTER 2019-12-06 07:38 | Day surgery (SDC) | payer MEDICARE ==
[2019-12-02 09:10] VITALS: BMI 44.3
[2019-12-06] MEDS ORDERED: PROPOFOL 0 ML ONE (08:37)
[2019-12-06] MEDS ORDERED: PROPOFOL 20 ML ONE (10:01)
[2019-12-06] MEDS ORDERED: Lidocaine 2% PF 100 mg/5 ml Syringe ONE (10:01)
[2019-12-06] MEDS ORDERED: Hydrocortisone 1% Cream 30 GM TUBE ONE (11:02)
[2019-12-06] MEDS ORDERED: Lidocaine 1% PF 5 ML VIAL ONE (11:06)
--- NOTE | 2019-12-06 20:21 | EKG ---
Test Reason : PREOP CARDIOVERSION Blood Pressure : / mmHG Vent. Rate : 093 BPM Atrial Rate : 127 BPM P-R Int : 000 ms QRS Dur : 172 ms QT Int : 404 ms P-R-T Axes : 000 -85 008 degrees QTc Int : 502 ms Atrial fibrillation Left axis deviation Right bundle branch block Possible Lateral infarct (cited on or before 08-DEC-2018) Abnormal ECG When compared with ECG of 08-DEC-2018 07:03, Atrial fibrillation has replaced Sinus rhythm T wave inversion no longer evident in Anterior leads Confirmed by ROBERTA COFFEY, . SLyudmila (4) on 12/06/2019 8:20:57 PM Referred By: TOMEKA Confirmed By:DR. Delfino GRANADOS MD
--- NOTE | 2019-12-06 20:22 | EKG ---
Test Reason : POST CARDIOVERSION Blood Pressure : / mmHG Vent. Rate : 087 BPM Atrial Rate : 091 BPM P-R Int : 000 ms QRS Dur : 176 ms QT Int : 462 ms P-R-T Axes : 000 -87 016 degrees QTc Int : 555 ms Atrial fibrillation with premature ventricular or aberrantly conducted complexes Left axis deviation Right bundle branch block Possible Lateral infarct , age undetermined Abnormal ECG Confirmed by ROBERTA COFFEY, DR. Saleh (4) on 12/06/2019 8:22:15 PM Referred By: TOMEKA Confirmed By:DR. Delfino GRANADOS MD
--- NOTE | 2019-12-10 19:19 | OP ---
DATE OF PROCEDURE: 12/06/19 SURGEON: Kevin Dawn M.D. PROCEDURE: Cardioversion. This was not successful. The patient is brought to the Recovery Room in the fasting state. He was sedated by anesthesia. He wa s given 200 joules direct current synchronized energy but did not converted to sinus rhythm. He was g iven 300 joules direct current energy and appeared to have a pause in the rhythm but then promptly we nt back in atrial fibrillation. He was then given 360 joules direct current synchronized energy and h ad a pause in the rhythm but promptly went back in atrial fibrillation. CONCLUSIONS: Unsuccessful cardioversion despite three 360 joules of energy, synchronized shocks.
== END 2019-12-06 11:15 | disposition home or self-care (01) ==
LOC: CCL 07:38
PROVIDERS: ATTEND Internal Medicine Cardiovascular Disease
DX: I48.0 Paroxysmal atrial fibrillation (principal); I13.0 Hypertensive heart and chronic kidney disease with heart failure and stage 1 through stage 4 chronic kidney disease, or unspecified chronic kidney disease; E11.22 Type 2 diabetes mellitus with diabetic chronic kidney disease; N18.3 Chronic kidney disease, stage 3 (moderate); I50.22 Chronic systolic (congestive) heart failure; I45.10 Unspecified right bundle-branch block; E78.00 Pure hypercholesterolemia, unspecified; E66.01 Morbid (severe) obesity due to excess calories; Z68.41 Body mass index [BMI] 40.0-44.9, adult; Z79.01 Long term (current) use of anticoagulants; Z79.4 Long term (current) use of insulin; Z79.899 Other long term (current) drug therapy
CPT/HCPCS: 92960; 93005; 93010; J2001; J2704

== ENCOUNTER 2020-05-16 12:12 | Outpatient (CLI) | payer MEDICARE, OTHER ==
[2020-05-17 13:15] LABS: SARS-CoV-2 MS2 Positive; SARS-CoV-2 N Gene Negative; SARS-CoV-2 S Gene Negative; SARS-CoV-2 by NAA Not Detected (NotDetected); SARS-CoV-2 orf1ab Negative
== END 2020-05-16 12:13 | disposition home or self-care (01) ==
LOC: LABBT 12:12
PROVIDERS: ATTEND Internal Medicine Cardiovascular Disease
DX: I48.91 Unspecified atrial fibrillation (principal); Z20.828 Contact with and (suspected) exposure to other viral communicable diseases
CPT/HCPCS: 87635; U0003

== ENCOUNTER 2020-05-21 05:39 | Day surgery (SDC) | payer MEDICARE ==
[2020-05-18 15:09] VITALS: BMI 40.4
[2020-05-21] MEDS ORDERED: PROPOFOL 20 ML ONE (06:28)
[2020-05-21] MEDS ORDERED: Lidocaine 1% PF 5 ML VIAL ONE (09:24)
--- NOTE | 2020-05-23 11:58 | CCLSPC ---
PROCEDURE: Cardioversion. INDICATION: Persistent atrial fibrillation, symptomatic. COMPLICATIONS: None. The patient was brought to the post cath area in the fasting state. He was sedated. He was given 300 joules direct current energy, had a sinus pause, followed by sinus with a first-degree AV block, some transient what appeared to be junctional rhythms and sinus rhythm with a first-degree AV block. CONCLUSION: Successful cardioversion. Job ID: [id number]
== END 2020-05-21 08:18 | disposition home or self-care (01) ==
LOC: SDC 05:39
PROVIDERS: ATTEND Internal Medicine Cardiovascular Disease
PROC: 5A2204Z Restoration of Cardiac Rhythm, Single (ICD-10-PCS; principal; 2020-05-21)
DX: I48.0 Paroxysmal atrial fibrillation (principal); I13.0 Hypertensive heart and chronic kidney disease with heart failure and stage 1 through stage 4 chronic kidney disease, or unspecified chronic kidney disease; E11.22 Type 2 diabetes mellitus with diabetic chronic kidney disease; N18.30 Chronic kidney disease, stage 3 unspecified; I50.22 Chronic systolic (congestive) heart failure; G47.33 Obstructive sleep apnea (adult) (pediatric); E78.5 Hyperlipidemia, unspecified; E78.00 Pure hypercholesterolemia, unspecified; I45.10 Unspecified right bundle-branch block; E66.01 Morbid (severe) obesity due to excess calories; Z68.41 Body mass index [BMI] 40.0-44.9, adult; Z87.891 Personal history of nicotine dependence; Z79.4 Long term (current) use of insulin; Z79.82 Long term (current) use of aspirin; Z79.899 Other long term (current) drug therapy
CPT/HCPCS: 92960; 93005; 93010; J2704

== ENCOUNTER 2023-09-24 10:02 | Outpatient (CLI) | payer MEDICARE | END 2023-09-24 10:03 | disposition home or self-care (01) | LOC: RAD 10:02 | PROVIDERS: ATTEND Nurse Practitioner Family | DX: I50.22 Chronic systolic (congestive) heart failure (principal); R91.8 Other nonspecific abnormal finding of lung field | CPT/HCPCS: 36415; 71046; 80048; 83880 ==